=== PATIENT | female | born 1965 | race Caucasian/White ===

== ENCOUNTER 2019-05-15 15:22 | Emergency (ER) | payer OTHER, MEDICAID ==
[~2019-05-15] VITALS: Ht 154.9 cm; Wt 78.9 kg
[2019-05-15 15:27] VITALS: BP 151/109
--- NOTE | 2019-05-15 15:27 | NUR ---
DR MILLS AT BEDSIDE
[2019-05-15] MEDS ORDERED: IBUPROFEN 600 MG TAB PO ONE (15:35)
[2019-05-15] MEDS ORDERED: CYCLOBENZAPRINE 10 MG TAB PO ONE (15:35)
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
--- NOTE | 2019-05-15 15:38 | NUR ---
FLEXERIL AND MOTRIN GIVEN PO. GIVEN WITH APPLESAUCE PER PATIENTS REQUEST
--- NOTE | 2019-05-15 15:40 | NUR ---
PT STATES SHE IS UNABLE TO TAKE IBUPROFEN DUE TO PILL SIZE. PILL CUT IN HALF. PT SPIT UP PILL. PT REQUESTING PO LIQUID FORM, DR MILLS NOTIFIED
--- NOTE | 2019-05-15 15:40 | NUR ---
PT BEING TAKEN TO XRAY VIA WHEELCHAIR
[2019-05-15] MEDS ORDERED: KETOROLAC 30 MG/ML VIAL IM ONE (16:00)
--- NOTE | 2019-05-15 16:00 | NUR ---
DR MILLS STATES TO GIVE TORADOL IM
--- NOTE | 2019-05-15 16:11 | NUR ---
TORADOL IM ADMINISTERED
--- NOTE | 2019-05-15 16:12 | NUR ---
ICE PACK APPLIED TO R ARM
--- NOTE | 2019-05-15 16:15 | NUR ---
Patient discharged with v/s stable. Written and verbal after care instructions given and explained. Patient alert, oriented and verbalized understanding of instructions. Ambulatory with steady gait. All questions addressed prior to discharge. ID band removed. Patient advised to follow up with PMD. Rx of FLEXIRIL, NAPROXEN given. Patient educated on indication of medication including possible reaction and side effects. Opportunity to ask questions provided and answered.
--- NOTE | 2019-05-15 16:15 | NUR ---
PT REPORTS RELIEF OF PAIN POST TORADOL ADMIN.
[2019-05-15 16:16] VITALS: BP 148/94
== END 2019-05-15 16:15 | disposition home or self-care (01) ==
LOC: MED 15:22
DX: M79.631 Pain in right forearm (principal); R51 Headache; I10 Essential (primary) hypertension; F41.9 Anxiety disorder, unspecified; Z88.2 Allergy status to sulfonamides; Z88.8 Allergy status to other drugs, medicaments and biological substances; Z86.73 Personal history of transient ischemic attack (TIA), and cerebral infarction without residual deficits; V49.50XA Passenger injured in collision with unspecified motor vehicles in traffic accident, initial encounter; Y93.89 Activity, other specified; Y92.89 Other specified places as the place of occurrence of the external cause; Y99.8 Other external cause status
CPT/HCPCS: 73090; 96372; 99283; J1885